=== PATIENT | female | born 1945 | race Caucasian/White ===

== ENCOUNTER → 2023-07-12 09:13 | Outpatient (REF) | payer MEDICARE, OTHER, SELFPAY ==
[2023-07-13 09:57] LABS: % Eosinophils 1.7 % (0-6); % Immature Granulocytes 0.4 % (0-0.5); % Lymphocytes 36.5 % (20.5-51.1); % Monocytes 12.1 % (1.7-9.3); % Neutrophils 48.3 % (42.2-75.2); Absolute Basophils 0.1 10^3/uL (0-0.2); Absolute Eosinophils 0.1 10^3/uL (0-0.7); Absolute Lymphocytes 1.9 10^3/uL (1.2-3.4); Absolute Monocytes 0.6 10^3/uL (0.1-0.6); Absolute Neutrophils 2.5 10^3/uL (1.4-6.5); Hematocrit 44.5 % (37.0-47.0); Hemoglobin 14.7 g/dL (12.0-16.0); Mean Corpuscular Volume 96.9 fL (81.0-99.0); Mean Platelet Volume 8.8 fL (7.4-10.4); Nucleated Red Blood Cells % 0 %; Platelet Count 262 10^3/uL (130-400); Red Blood Cell Count 4.59 10^6/uL (4.20-5.40); Red Cell Dist. Width 12.2 % (11.5-14.5); White Blood Cell Count 5.2 10^3/uL (4.8-10.8)
[2023-07-13 10:30] LABS: ALT (SGPT) 20 U/L (0-35); AST (SGOT) 25 U/L (14-36); Albumin 3.8 g/dl (3.5-5.0); Alkaline Phosphatase 110 U/L (38-126); Blood Urea Nitrogen 17 mg/dl (7-17); Calcium 9.3 mg/dl (8.4-10.2); Carbon Dioxide 26 mmol/L (22-30); Chloride 109 mmol/L (98-107); Glucose 100 mg/dl (70-99); HDL Cholesterol 68 mg/dl; LDL Cholesterol, Calculated 98 mg/dl; Sodium 141 mmol/L (135-145); Total Bilirubin 0.6 mg/dl (0.2-1.3); Total Cholesterol 182 mg/dl (50-199); Total Protein 6.6 g/dl (6.3-8.2); Triglyceride 80 mg/dl (10-149); Very Low Density Lipoprotein 16 mg/dl (0-30); eGFR > 60.00
[2023-07-13 10:46] LABS: Vitamin D, 25-OH*** < 12.8 ng/mL (30-80)
[2023-07-13 11:00] LABS: TSH Reflex To Free T4 1.55 uIU/ml (0.47-4.68)
== END ==
LOC: CLAB 09:13
PROVIDERS: ATTENDING PHYSICIAN Family Medicine
DX: R19.5 Other fecal abnormalities (principal); E78.00 Pure hypercholesterolemia, unspecified; Z51.81 Encounter for therapeutic drug level monitoring; E04.1 Nontoxic single thyroid nodule; E55.9 Vitamin D deficiency, unspecified
CPT/HCPCS: 80053; 80061; 82306; 84443; 85025

== ENCOUNTER → 2023-07-16 09:56 | Outpatient (REF) | payer MEDICARE, OTHER, SELFPAY | LOC: REG 09:56 | PROVIDERS: ATTENDING PHYSICIAN Family Medicine | DX: R19.5 Other fecal abnormalities (principal) | CPT/HCPCS: 87045; 87046; 87324; 87328; 87329; 87427; 87449; 89055 ==

== ENCOUNTER → 2023-09-24 17:36 | Outpatient (REF) | payer MEDICARE, OTHER, SELFPAY ==
[2023-09-24 19:23] LABS: Urine Albumin Trace (Neg - Trace); Urine Bilirubin Negative (Negative); Urine Character Very Cloudy (Clear); Urine Color Yellow; Urine Glucose Negative (Negative); Urine Ketone Trace (Negative); Urine Leukocyte 2+ (Negative); Urine Nitrite Negative (Negative); Urine Occult Blood Negative (Negative); Urine Urobilinogen Negative (Neg - 1+)
== END ==
LOC: CLAB 17:36
PROVIDERS: ATTENDING PHYSICIAN Obstetrics & Gynecology
DX: N39.0 Urinary tract infection, site not specified (principal)
CPT/HCPCS: 81003; 81015; 87086

== ENCOUNTER → 2023-10-21 12:54 | Outpatient (REF) | payer MEDICARE, OTHER, SELFPAY | LOC: HWRAD 12:54 | PROVIDERS: ATTENDING PHYSICIAN Obstetrics & Gynecology; FAMILY PHYSICIAN Family Medicine | DX: N81.4 Uterovaginal prolapse, unspecified (principal); N95.0 Postmenopausal bleeding | CPT/HCPCS: 76830; 76856 ==

== ENCOUNTER 2024-03-10 06:13 | Day surgery (SDC) | payer MEDICARE, OTHER, SELFPAY ==
[2024-03-07 11:39] LABS: Hematocrit 36.7 % (37.0-47.0); Hemoglobin 12.4 g/dL (12.0-16.0); Mean Corp Hgb Conc. 33.8 g/dL (33.0-37.0); Mean Corpuscular Volume 97.6 fL (81.0-99.0); Mean Platelet Volume 9.3 fL (7.4-10.4); Platelet Count 308 10^3/uL (130-400); Red Blood Cell Count 3.76 10^6/uL (4.20-5.40); Red Cell Dist. Width 11.5 % (11.5-14.5); White Blood Cell Count 5.8 10^3/uL (4.8-10.8)
[2024-03-07 12:17] LABS: ALT (SGPT) 17 U/L (0-35); AST (SGOT) 22 U/L (14-36); Albumin 3.9 g/dl (3.5-5.0); Alkaline Phosphatase 105 U/L (38-126); Blood Urea Nitrogen 16 mg/dl (7-17); Calcium 9.3 mg/dl (8.4-10.2); Carbon Dioxide 25 mmol/L (22-30); Chloride 106 mmol/L (98-107); Glucose 85 mg/dl (70-99); Potassium 4.2 mmol/L (3.5-5.1); Sodium 142 mmol/L (135-145); Total Bilirubin 0.4 mg/dl (0.2-1.3); Total Protein 6.5 g/dl (6.3-8.2); eGFR > 60.00
[2024-03-07 12:20] LABS: Glycohemoglobin (HgbA1c) 5.2 % (4.0-5.6)
[2024-03-07 12:55] VITALS: BMI 26.9
[2024-03-09 09:23] VITALS: BMI 26.9
[2024-03-10] VITALS (12 sets, daily range): BP systolic 98–138; BP diastolic 47–65
[2024-03-10] MEDS: CELEBREX 200 MG PO (07:36)
[2024-03-10] MEDS: TYLENOL 1000 MG PO (07:36)
[2024-03-10] MEDS: ANCEF 5 IV (13:22)
== END 2024-03-10 13:58 | disposition home or self-care (01) ==
LOC: SDS 06:13
PROVIDERS: ATTENDING PHYSICIAN Specialist; FAMILY PHYSICIAN Family Medicine
DX: M80.012A Age-related osteoporosis with current pathological fracture, left shoulder, initial encounter for fracture (principal); Z96.612 Presence of left artificial shoulder joint
CPT/HCPCS: 23472; 20680; C1713; C1776; 36415; 73020; 80053; 83036; 85027; 87070; 93005

== ENCOUNTER 2025-01-05 18:10 | Emergency (ER) | payer MEDICARE, OTHER, SELFPAY ==
[2025-01-05 18:13] VITALS: BP 200/82
--- NOTE | 2025-01-05 19:26 | EDRN ---
Dr. Banda in room w/ pt at this time.
--- NOTE | 2025-01-05 19:30 | ED.GENMED ---
History of Present Illness
General
Chief Complaint: Fall
Source: patient
Exam Limitations: none
Time Seen by Provider: 01/05/25 19:01
Nursing documentation reviewed up to this point in time: agreed with
History of Present Illness
History of Present Illness:
79-year-old female with past medical history of mild dementia, hyperlipidemia who presents to the ER with her for evaluation after a fall with facial trauma. Patient was walking her dog this evening, says that her dog pulled her on the
leash and she fell forward towards the left. She hit the left side of her face on the pavement. She says she did not lose consciousness. She says she did not sustain any other serious injuries. She does have abrasions to the left cheek as well
as a laceration to the chin. Came to the ER for assessment. She denies headache or neck pain. She denies any back pain. She denies any pain in the ribs. She denies any pain in her extremities. She says that her tetanus is up-to-date as of last
year and confirms.
Past History
Past History
ED Past Medical History: Hypercholesterolemia
ED Past Surgical History: Appendectomy
Social History
Tobacco: Non-smoker
Personal:
Review of Systems
Review of Systems
All Other Systems: ROS reviewed and negative except as documented in HPI and ROS
EENT: Reports other (Facial abrasions/lacerations)
Cardiac: Denies chest pain
ABD/GI: Denies abdominal pain, nausea or vomiting
: Denies flank pain
Musculoskeletal: Denies joint pain, neck pain or back pain
Neurological: Denies dizzy or headache
Phy Exam
Physical Exam
Physical Exam:
General: Awake, alert, no acute distress
Head: Normocephalic, patient has mild left periorbital ecchymosis, abrasion to the left maxillary region; she has a small 2 cm laceration on the chin
Eyes: Conjunctiva normal, EOMI, pupils equal round and reactive to light bilaterally
Throat: Airway intact, handling secretions, tongue atraumatic
Neck: Trachea midline, no cervical spine tenderness
Back: No signs of trauma to the back or flank and no tenderness in the thoracic or lumbar region
Lungs: Breathing comfortably with no distress
Heart: Regular rate; no chest wall tenderness
Abd: Soft, non distended, nontender
Neuro: Grossly intact
Skin: Facial abrasion/laceration as above
Extremities: Patient has very minor bruise to the knees bilaterally but no joint effusions, full range of motion without pain; rest of extremities atraumatic including no signs of abrasions or bruising to the wrists/palms and no snuffbox tenderness,
full range of motion of the wrists
Scores
Heart Failure Risk
Heart Failure Risk Score: Not Applicable
Heart Score for Chest Pain Patients
STEMI patient?: Not applicable
Withdrawal Assessment of Alcohol
Withdrawal Assessment Completed?: Not applicable
Course
Orders/Labs/Results
Orders:
Orders
01/05/25 18:15
CT Cervical Spine W/o Iv Contr Urgent
Comment:
Reason For Exam: Fall, Head injury
CT Head W/o Iv Contrast Urgent
Comment:
Reason For Exam: Fall, Head injury
01/05/25 19:30
Lidocaine/Epinephrine/Tetracai [Let Topical Anesthetic Gel] 3 ml .ROUTE .[facility]
Lidocaine/Epinephrine/Tetracai [Let Topical Anesthetic Gel] 3 ml TOPICAL NOW STA
Vital Signs
Initial and Last Documented VS:
Initial Vital Signs
Temp Pulse Resp BP Pulse Ox
37.0 C 46 16 200/82 96
01/05/25 18:13 01/05/25 18:13 01/05/25 18:13 01/05/25 18:13 01/05/25 18:13
Last Documented Vital Signs
Temp Pulse Resp BP Pulse Ox
36.8 C 52 20 146/57 97
01/05/25 20:26 01/05/25 20:26 01/05/25 20:26 01/05/25 20:26 01/05/25 20:26
Procedures
Laceration Closure
Chin:
Status of Wound: dirty
Size of Wound in cm: 2
Description of Wound Edges: ragged
Preparation: cleaned with saline
Anesthesia: Topical-LET
Revision/Debridement: routine- no revision
Type of Closure: single layer closure
Skin Closure Material: other (5-0 rapid absorbing gut )
Number of sutures: 4
MDM/Problems Addressed
Differential Diagnosis Includes:
Traumatic head injury�brain bleed, concussion, facial bone fracture, cervical spine injury
MDM/Problems Addressed:
79-year-old female presents after a fall from standing as described above. She has some injuries to the face as described. She was noted to be hypertensive in triage which has improved by my assessment. She was sent for a CT of the head and
cervical spine which are pending. Tetanus is reportedly up-to-date. Will plan to clean wounds, will likely need stitches for chin laceration. Reassess after the above.
CT of the head negative for any acute pathology. Abrasions cleaned and antibiotic ointment applied. Laceration repaired with absorbable suture as documented procedure note. Antibiotic ointment and clean dressing applied. Stable for discharge,
spoke about follow-up plan and return precautions. All questions answered.
Acute Exacerbation and/or Progression of Chronic Illness:
Acutely hypertensive
Acute Exacerbation and/or Progression of Chronic Illness: HTN
*Radiology
Radiology exam reviewed: radiology read reviewed
*Pulse Oximetry
SaO2: 96
Oxygen Mode of Delivery: Room air
Patient hypoxic: no (96%)
*Critical Care Note
Total Time (30-74mins, 75-104mins- exclusive of procedures): Not Applicable
Data Reviewed
Source: patient and spouse
ED Attending Note
-
Portions of this chart may have been created with voice recognition software.� Occasional wrong word or��sound alike� substitutions may have occurred due to the inherent limitations of voice recognition software.
Discharge Plan
Departure
Patient Disposition: Home (Routine Discharge)
Date of Disposition: 01/05/25
Time of Disposition: 20:28
Patient with high blood pressure during this ER visit?: Yes
Discharge Problem:
Chin laceration, Abrasion of face, Hypertension
Instructions: Laceration Repair With Stitches (DC), Skin Abrasions (DC), BLOOD PRESSURE
Prescriptions:
No Action
atorvastatin 40 MG tablet
40 mg PO DAILY
donepezil [Aricept] 10 mg Tablet
10 mg PO QPM
ascorbic acid (vitamin C) [Vitamin C] 500 mg Tablet
500 mg PO DAILY
fluoxetine 20 mg Tablet
20 mg PO DAILY
Gemtesa 75 mg Tablet
75 mg PO QPM
mupirocin 2 % Ointment
1 applic topical BID
dexamethasone 4 mg tablet
4 mg PO BID Qty: 7 0RF
Rx Instructions:
Start night of discharge and continue twice a day until finished.
Take with food.
celecoxib [Celebrex] 200 mg capsule
200 mg PO DAILY Qty: 14 0RF
Rx Instructions:
Take with food.
DO NOT take within 2 hours of Aspirin.
ondansetron HCl 4 mg tablet
4 mg PO Q6H PRN (Reason: nausea and vomiting) Qty: 30 0RF
aspirin 325 mg tablet
325 mg PO DAILY Qty: 30 0RF
Rx Instructions:
Take daily x4 weeks for blood clot prevention.
docusate sodium [Colace] 100 mg capsule
100 mg PO BID Qty: 30 0RF
sennosides [senna] 8.6 mg tablet
17.2 mg PO BID Qty: 30 0RF
acetaminophen 500 mg Tablet
1,000 mg PO Q6H Qty: 60 0RF
Rx Instructions:
DO NOT exceed >4000 mg daily.
tramadol 50 mg tablet
50 mg PO Q6H PRN (Reason: Pain) Qty: 20 0RF
Activity Restrictions/Additional Instructions:
Your blood pressure was high in the emergency room and you should follow-up with your primary doctor within the next week to have it rechecked and discuss if your medications need to be adjusted.
Interventions
Interventions:
*Risk Screen - Suicide Last Done: 01/05/25 19:37
*General Assessment Last Done: 01/05/25 19:37
*Neglect/Abuse Screening Last Done: 01/05/25 19:37
*ED- Fall Risk Assessment Last Done: 01/05/25 19:37
*ED COVID-19 Vaccine History Last Done: 01/05/25 19:37
*Nursing Disposition Last Done: 01/05/25 20:52
ED-Musculoskeletal Assessment Last Done: 01/05/25 19:41
ED- Neurological Assessment Last Done: 01/05/25 19:41
ED-Skin Assessment Last Done: 01/05/25 19:41
Discharge Date and Time
Discharge Date/Time: 01/05/25 20:54
Print Language: CZECH
[2025-01-05] MEDS: LET TOPICAL ANESTHETIC GEL 3 ML TOPICAL (19:32)
[2025-01-05 19:37] VITALS: BMI 25.1
--- NOTE | 2025-01-05 20:16 | EDRN ---
Dr. Banda in room suturing chin area at this time.
[2025-01-05 20:26] VITALS: BP 146/57
== END 2025-01-05 20:54 | disposition home or self-care (01) ==
LOC: EMR 18:10
PROVIDERS: EMERGENCY PHYSICIAN Emergency Medicine; FAMILY PHYSICIAN Student in an Organized Health Care Education/Training Program
DX: S01.81XA Laceration without foreign body of other part of head, initial encounter (principal); W18.30XA Fall on same level, unspecified, initial encounter; Y93.K1 Activity, walking an animal; I10 Essential (primary) hypertension; E78.00 Pure hypercholesterolemia, unspecified; F03.A0 Unspecified dementia, mild, without behavioral disturbance, psychotic disturbance, mood disturbance, and anxiety
CPT/HCPCS: 12011; 99284; 70450; 72125

== ENCOUNTER 2025-02-10 16:57 | Emergency (ER) | payer MEDICARE, OTHER, SELFPAY ==
[2025-02-10 17:03] VITALS: BP 118/63
[2025-02-10 17:25] VITALS: BP 126/62
[2025-02-10 18:27] LABS: Hematocrit 37.0 % (37.0-47.0); Hemoglobin 12.2 g/dL (12.0-16.0); Mean Corp Hgb Conc. 33.0 g/dL (33.0-37.0); Mean Corpuscular Volume 93.9 fL (81.0-99.0); Nucleated Red Blood Cells % 0 %; Platelet Count 215 10^3/uL (130-400); Red Cell Dist. Width 12.0 % (11.5-14.5)
[2025-02-10 18:40] LABS: ALT (SGPT) 38 U/L (0-35); AST (SGOT) 38 U/L (14-36); Albumin 3.8 g/dl (3.5-5.0); Alkaline Phosphatase 92 U/L (38-126); Blood Urea Nitrogen 21 mg/dl (7-17); Calcium 8.4 mg/dl (8.4-10.2); Carbon Dioxide 18 mmol/L (22-30); Chloride 111 mmol/L (98-107); Glucose 85 mg/dl (70-99); Potassium 3.8 mmol/L (3.5-5.1); Sodium 141 mmol/L (135-145); Total Protein 6.4 g/dl (6.3-8.2); eGFR > 60.00
[2025-02-10 18:41] VITALS: BP 131/57
[2025-02-10 18:42] LABS: COVID-19 Antigen Negative (Negative)
[2025-02-10 19:05] VITALS: BP 121/49
--- NOTE | 2025-02-10 19:05 | ED.GENMED ---
History of Present Illness
General
Chief Complaint: Fall
Source: patient
Exam Limitations: none
Time Seen by Provider: 02/10/25 17:25
Nursing documentation reviewed up to this point in time: agreed with
History of Present Illness
History of Present Illness:
The patient is a 79-year-old female with a past medical history of mild dementia and hyperlipidemia who presents after a fall just prior to arrival today. Her reports that she seemed wobbly and weak in both of her legs and fell. The
patient reports she does not remember the fall. The patient presents with significant swelling around her right eye. She denies vision changes. She denies headache. There is no loss of consciousness. She denies nausea and vomiting. She denies
chest pain and back pain. Family reports that for several days she has seemed more confused than normal, however, they report that she was recently diagnosed with mild dementia. They also reports she has been coughing for the last few days.
Past History
Past History
ED Past Medical History: Hypercholesterolemia
ED Past Surgical History: Appendectomy
Social History
Tobacco: Non-smoker
Alcohol: Occasional
Drug: None
Personal:
Living: with family
Employment: Other
Family History
Family History: Other
Review of Systems
Review of Systems
Allergies reviewed?: Yes
Other source history: family
All Other Systems: ROS reviewed and negative except as documented in HPI and ROS
Constitutional: Reports fatigue
EENT: Reports other (Ecchymotic right eye)
Respiratory: Reports no symptoms
Cardiac: Reports no symptoms
ABD/GI: Reports no symptoms
: Reports no symptoms
Musculoskeletal: Reports no symptoms
Skin: Reports no symptoms
Neurological: Reports dizzy and weakness (Generalized weakness in bilateral legs)
Endocrine: Reports no symptoms
Hematologic/Lymphatic: Reports no symptoms
Psychiatric: Reports no symptoms
Phy Exam
Physical Exam
Physical Exam:
Physical Exam
General: no apparent distress, not acutely ill. Significant right periorbital ecchymoses and swelling. Conversational, smiling
Neck: supple. C-spine tenderness. PERRL. Extraocular muscles intact. No subconjunctival hemorrhage. Significant right upper and lower eyelid ecchymoses and swelling but able to pry open eyelids to see globe which
appears normal.
Heart: s1/s2 regular rate and rhythm, no murmur. equal radial pulses. No chest wall tenderness. No vertebral spine tenderness
Lungs: no acute respiratory distress. clear bilaterally
Abdomen: normal bowel sounds. not tender. no CVAT
Neuro: alert and orientedx3. no focal neurological deficits, answers all questions appropriately. 5 out of 5 strength in all extremities without drift. Normal finger-nose. Acts appropriately. Speech sounds normal.
Skin: no rash
Psychiatric: well kept. interactive and cooperative
Extremities: Nontender upper and lower extremities. Nontender pelvis and hips
Course
Orders/Labs/Results
Orders:
Orders
02/10/25 17:41
Electrocardiogram (*1) Urgent
Reason for Study: Fatigue / Weakness
EKG- Treatment ONCE
02/10/25 17:42
CT Facial Bones W/o Iv Contras Urgent
Comment:
Reason For Exam: fall, hit face
CT Head W/o Iv Contrast Urgent
Comment:
Reason For Exam: fall
CR Chest - 2 Views Urgent
Comment:
Reason For Exam: cough
02/10/25 17:43
CT Cervical Spine W/o Iv Contr Urgent
Comment:
Reason For Exam: fall
02/10/25 18:20
Alcohol Urgent
COVID-19 Antigen Urgent
Source: Nasal Swab
Complete Blood Count/With Diff Urgent
Comprehensive Metabolic Panel Urgent
Influenza A+B Rapid Molecular Urgent
KIESHA Source: Nasal Swab
Specimen Description:
02/10/25 19:04
Urinalysis Reflex To Culture Urgent
Date Specimen was Collected: 02/10/25
Time Specimen was Collected: 18:56
02/10/25 19:06
Add On- LAB Urgent
Tests Added?: serum alcohol
Abnormal Lab Results
02/10/25
18:20
RBC 3.94 L 10^6/uL
(4.20-5.40)
Abs Immat Gran (auto) 0.1 H 10^3/uL
(0-0.05)
Absolute Neuts (auto) 6.8 H 10^3/uL
(1.4-6.5)
Absolute Monos (auto) 0.8 H 10^3/uL
(0.1-0.6)
Immature Gran % 0.7 H %
(0-0.5)
Lymphocytes % 14.6 L %
(20.5-51.1)
Chloride 111 H mmol/L
(98-107)
Carbon Dioxide 18 L mmol/L
(22-30)
BUN 21 H mg/dl
(7-17)
AST 38 H U/L
(14-36)
ALT 38 H U/L
(0-35)
02/10/25 18:20
02/10/25 18:20
Vital Signs
Initial and Last Documented VS:
Initial Vital Signs
Temp Pulse Resp BP Pulse Ox
97.8 F 57 16 118/63 95
02/10/25 17:03 02/10/25 17:03 02/10/25 17:03 02/10/25 17:03 02/10/25 17:03
Last Documented Vital Signs
Temp Pulse Resp BP Pulse Ox
97.8 F 85 22 124/55 96
02/10/25 17:03 02/10/25 20:11 02/10/25 20:11 02/10/25 20:11 02/10/25 20:11
MDM/Problems Addressed
Differential Diagnosis Includes:
Subdural hematoma, orbital wall fracture
MDM/Problems Addressed:
Patient presents with acute fall and periorbital ecchymoses of right eye
Chronic conditions affecting care:
Dementia
Acute Exacerbation and/or Progression of Chronic Illness:
Patient's described confusion earlier over the last few days could be due to acute on chronic dementia
*Radiology
Radiology exam reviewed: preliminary read by ED provider and radiology read reviewed
*Pulse Oximetry
SaO2: 96
Oxygen Mode of Delivery: Room air
Patient hypoxic: no
*EKG
Interpreted by ED Provider?: Yes
Interpretation: abnormal
Comparison EKG: no changes
Rate: bradycardiac
Rhythm: sinus
[place]: normal axis
Interval: first degree heart block
QRS Pattern: normal QRS
Ischemia: no ischemia
*Test Pilot Interpretation
Rate: normal
Interpretation: normal
Rhythm: sinus
*Critical Care Note
Total Time (30-74mins, 75-104mins- exclusive of procedures): Not Applicable
Data Reviewed
Review of Other/Old Records Reveals: Radiology Studies (CT head from 01/2025 shows no acute disease)
Source: patient and family
Patient Management
Social determinants of health affecting care: Living situation and Strong social support
Escalation/DeEscalation of care consider admission/obs:
Patient remains fully alert, oriented x 3, conversational and well-appearing for hours in the ED. Family reports she is at her normal good baseline mental status. There is no sign of UTI, pneumonia or intracranial hemorrhage. Patient is walking
around steadily in the ED, smiling and states she feels well. reports he feels comfortable taking her home. There is no sign of global trauma, however, has been urged to call ophthalmology on Wednesday to schedule follow-up given the
significant amount of swelling in her right periorbital area. Patient has no visual disturbances out of right eye and is able to see at her normal baseline when we open her right eyelids. There is no injection of conjunctiva, hyphema or
conjunctival hemorrhage.
ED Attending Note
-
Portions of this chart may have been created with voice recognition software.� Occasional wrong word or��sound alike� substitutions may have occurred due to the inherent limitations of voice recognition software.
Discharge Plan
Departure
Patient Disposition: Home (Routine Discharge)
Date of Disposition: 02/10/25
Time of Disposition: 20:08
Patient with high blood pressure during this ER visit?: No
Condition: Good
Covid-19: Not Applicable
Discharge Problem:
Generalized weakness, Periorbital ecchymosis of right eye
Instructions: Weakness - ED (DC), Black eye - ED (DC)
Prescriptions:
No Action
atorvastatin 40 MG tablet
40 mg PO DAILY
donepezil [Aricept] 10 mg Tablet
10 mg PO QPM
ascorbic acid (vitamin C) [Vitamin C] 500 mg Tablet
500 mg PO DAILY
fluoxetine 20 mg Tablet
20 mg PO DAILY
Gemtesa 75 mg Tablet
75 mg PO QPM
mupirocin 2 % Ointment
1 applic topical BID
dexamethasone 4 mg tablet
4 mg PO BID Qty: 7 0RF
Rx Instructions:
Start night of discharge and continue twice a day until finished.
Take with food.
celecoxib [Celebrex] 200 mg capsule
200 mg PO DAILY Qty: 14 0RF
Rx Instructions:
Take with food.
DO NOT take within 2 hours of Aspirin.
ondansetron HCl 4 mg tablet
4 mg PO Q6H PRN (Reason: nausea and vomiting) Qty: 30 0RF
aspirin 325 mg tablet
325 mg PO DAILY Qty: 30 0RF
Rx Instructions:
Take daily x4 weeks for blood clot prevention.
docusate sodium [Colace] 100 mg capsule
100 mg PO BID Qty: 30 0RF
sennosides [senna] 8.6 mg tablet
17.2 mg PO BID Qty: 30 0RF
acetaminophen 500 mg Tablet
1,000 mg PO Q6H Qty: 60 0RF
Rx Instructions:
DO NOT exceed >4000 mg daily.
tramadol 50 mg tablet
50 mg PO Q6H PRN (Reason: Pain) Qty: 20 0RF
Referrals:
Jameel Mckeon MD [Active, Ophthalmology]
Referral Note: Call this Wednesday to set up an appointment for this week
Carolina Boyer MD [Family Provider, Family Practice]
Activity Restrictions/Additional Instructions:
Please return with any increased confusion, vomiting, severe headache, dizziness or fever.
Please call Dr. Mckeon's office on Wednesday to set up an appointment.
Please apply a cool compress to your right eye area for 5 to 7 minutes at a time multiple times a day to control the swelling.
Interventions
Interventions:
*Risk Screen - Suicide Last Done: 02/10/25 17:08
*General Assessment Last Done: 02/10/25 17:08
*Neglect/Abuse Screening Last Done: 02/10/25 18:59
*ED- Fall Risk Assessment Last Done: 02/10/25 20:10
*ED COVID-19 Vaccine History Last Done: 02/10/25 17:08
*ED Influenza Vaccine History Last Done: 02/10/25 17:08
*Nursing Disposition Last Done: 02/10/25 20:10
ED-Musculoskeletal Assessment Last Done: 02/10/25 18:27
ED- Neurological Assessment Last Done: 02/10/25 19:06
ED-Skin Assessment Last Done: 02/10/25 18:26
Discharge Date and Time
Discharge Date/Time: 02/10/25 20:17
Print Language: UPPER SORBIAN
[2025-02-10 19:25] LABS: Urine Character Clear (Clear)
[2025-02-10 20:07] VITALS: BP 124/55
[2025-02-10 20:11] VITALS: BP 124/55
== END 2025-02-10 20:17 | disposition home or self-care (01) ==
LOC: EMR 16:57
PROVIDERS: EMERGENCY PHYSICIAN Emergency Medicine; FAMILY PHYSICIAN Student in an Organized Health Care Education/Training Program
DX: R53.1 Weakness (principal); S00.11XA Contusion of right eyelid and periocular area, initial encounter; I44.0 Atrioventricular block, first degree; R00.1 Bradycardia, unspecified; F03.A0 Unspecified dementia, mild, without behavioral disturbance, psychotic disturbance, mood disturbance, and anxiety; E78.00 Pure hypercholesterolemia, unspecified; W18.30XA Fall on same level, unspecified, initial encounter
CPT/HCPCS: 99284; 70450; 70486; 71046; 72125; 80053; 81003; 82077; 85025; 87502; 87811; 93005